=== PATIENT | female | born 1970 | race Caucasian/White ===

== ENCOUNTER 2019-03-16 16:12 | Emergency (ER) | payer SELFPAY ==
[~2019-03-16] VITALS: Ht 157.4 cm; Wt 52.6 kg
[2019-03-16] MEDS ORDERED: NAPROSYN500 MG PO (16:47)
[2019-03-16] MEDS ORDERED: CLINDAMYCIN HC300 MG PO (16:47)
== END 2019-03-16 17:04 | disposition home or self-care (01) ==
LOC: ED 16:12
DX: L02.415 Cutaneous abscess of right lower limb (principal); Z88.0 Allergy status to penicillin; Z88.6 Allergy status to analgesic agent; Z88.5 Allergy status to narcotic agent

== ENCOUNTER 2025-07-18 16:29 | Emergency (ER) | payer OTHER ==
[~2025-07-18] VITALS: Wt 52.6 kg
[~2025-07-18 16:29] MED LIST: CLINDAMYCIN HC300 MG PO; NAPROSYN500 MG PO
[2025-07-18 17:16] LABS: BASO # 0.1 10*3/uL (0.0-0.1); BASO % 1.2 % (0.0-1.0); EOS # 0.1 10*3/uL (0.0-0.4); EOS % 1.7 % (1.0-4.0); MEAN CELL VOLUME 105.7 fl (81.0-99.0); MEAN CORPUSCULAR HGB 35.7 pg (27.0-31.0); MEAN PLATELET VOLUME 10.0 fl (9.6-12.3); MONO # 0.7 10*3/uL (0.1-1.0); MONO % 10.3 % (3.0-9.0); NEUT # 4.1 10*3/uL (2.3-7.9); NEUT % 62.9 % (47.0-73.0); NUCLEATED RED BLOOD CELL 0.0 % (0.0-0.0); NUCLEATED RED BLOOD CELL 0.0 10*3/uL (0.0-0.0); PLATELET COUNT AUTOMATED 137 10*3/uL (130-400); RED CELL DISTRI WIDTH 13.5 % (0-14.5)
[2025-07-18 17:26] LABS: ACT PARTIAL THROMBO TIME 27.2 SECONDS (20.0-32.1)
[2025-07-18 17:44] LABS: BUN 8 mg/dl (9-23); SGPT/ALT 28 U/L (5-49)
== END 2025-07-18 21:34 | disposition short-term general hospital (02) ==
LOC: ED 16:29
PROVIDERS: Nurse Practitioner Family
DX: E05.00 Thyrotoxicosis with diffuse goiter without thyrotoxic crisis or storm (principal); Z88.0 Allergy status to penicillin; Z88.5 Allergy status to narcotic agent; Z88.6 Allergy status to analgesic agent; Z79.01 Long term (current) use of anticoagulants